=== PATIENT | female | born 1985 | race Caucasian/White ===

== ENCOUNTER 2017-05-19 18:19 | Emergency (ER) | payer OTHER ==
[2017-05-19 18:32] VITALS: BP 130/90; PULSE 95; TEMP 97.6; BMI 20.9
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
== END 2017-05-19 20:15 | disposition home or self-care (01) ==
LOC: JERFT 18:19
DX: S97.82XA Crushing injury of left foot, initial encounter (principal); S80.02XA Contusion of left knee, initial encounter; V03.10XA Pedestrian on foot injured in collision with car, pick-up truck or van in traffic accident, initial encounter; Y92.414 Local residential or business street as the place of occurrence of the external cause; Y93.01 Activity, walking, marching and hiking; Y99.8 Other external cause status
CPT/HCPCS: 73562-TC-LT; 73630-TC-LT; 84703; 99282-25